=== PATIENT | male | born 1960 | race Caucasian/White ===

== ENCOUNTER → 2023-08-26 08:12 | Outpatient (CLI) | payer OTHER, SELFPAY ==
--- NOTE | 2023-08-26 08:14 | DI.RAD.S_ITS ---
PROCEDURE: XR CHEST 2V INDICATIONS: dypsnea, chest congestion TECHNIQUE: 2 views of the chest were acquired. COMPARISON: None. FINDINGS: Surgical changes and devices: None. Lungs and pleura: Lungs are clear. No pleural effusions or pneumothorax. Mediastinum: Mediastinal contours are normal. Heart size is normal. Bones and chest wall: No suspicious bony abnormalities. Soft tissues appear unremarkable. IMPRESSION: No acute cardiopulmonary process. Dictated by: Edison Fuller M.D. on 08/26/2023 at 8:35 Approved by: Edison Fuller M.D. on 08/26/2023 at 8:36
== END ==
PROVIDERS: Referring Provider Physician Assistant Surgical; Visit Provider Physician Assistant Surgical
DX: R09.89 Other specified symptoms and signs involving the circulatory and respiratory systems (principal)
CPT/HCPCS: 71046

== ENCOUNTER 2023-09-03 16:31 | Emergency (ER) | payer OTHER, SELFPAY ==
[2023-09-03] VITALS (65 sets, daily range): BP systolic 129–258; BP diastolic 76–119; PULSE 77–104; RESP 16–38; O2SAT 95–99; BMI 27.4
--- NOTE | 2023-09-03 16:49 | DI.RAD.S_ITS ---
PROCEDURE: XR CHEST 1V INDICATIONS: Possible stroke TECHNIQUE: One view of the chest was acquired. COMPARISON: [facility], CR, XR CHEST 2V, 08/26/2023, 8:17. FINDINGS: Surgical changes and devices: None. Lungs and pleura: Lungs are clear. No pleural effusions or pneumothorax. Mediastinum: Mediastinal contours appear normal. Heart size is normal. Bones and chest wall: No suspicious bony lesions. Overlying soft tissues appear unremarkable. IMPRESSION: No acute cardiopulmonary abnormalities or focal airspace disease. Dictated by: Jamaal Oreilly M.D. on 09/03/2023 at 17:14 Approved by: Jamaal Oreilly M.D. on 09/03/2023 at 17:14
--- NOTE | 2023-09-03 16:50 | DI.CT.S_ITS ---
PROCEDURE: CT ANGIO HEAD AND NECK INDICATIONS: left facial weakness sudden onset TECHNIQUE: After the administration of intravenous contrast, 1 mm thick sections acquired from the aortic arch through the [place] of [place]. 3-dimensional iqoiahk-hwuqtkrgw-vwpswvdjgb (MIP) and/or volume rendering reformats were acquired of the central intracranial vasculature and neck separately. For radiation dose reduction, the following was used: automated exposure control, adjustment of mA and/or kV according to patient size. COMPARISON: [facility], CT, CT STROKE, 09/03/2023, 17:02. FINDINGS: Image quality: Diagnostic. BRAIN: CSF spaces: Ventricles are normal in size and shape. Basal cisterns are patent. No extra-axial fluid collections. Brain: No midline shift. No intracranial masses. No suspicious enhancement. Rosa-white matter interface appears intact. Skull and face: Calvarium and facial bones appear intact, without suspicious lesions. Orbits appear normal. Sinuses: Sinuses and mastoids are clear. HEAD CT ANGIOGRAPHY: Anterior circulation: Intracranial atherosclerotic calcifications of the internal carotid arteries.. Intracranial internal carotid arteries appear patent without high-grade stenosis. There is flow/opacification within the paired anterior cerebral arteries. There is opacification within the middle cerebral arteries. The anterior communicating artery is seen. No aneurysms are seen. No occlusion. Posterior circulation: Visualized portions of the vertebral arteries are patent and join to form a normal appearing basilar artery. No evidence for high-grade stenosis. No occlusions. There is opacification of the posterior cerebral arteries. No aneurysms are seen. NECK CT ANGIOGRAPHY: Carotid system: The great vessels demonstrate a conventional anatomy as they arise from the aortic arch. The origins of the common carotid arteries appear patent. The common carotid arteries appear patent throughout their visualized courses without high grade stenosis. The bifurcation regions are both patent without high grade stenosis. The internal carotid arteries demonstrate normal calibers and courses. Posterior circulation: The origins of the vertebral arteries both appear patent without hemodynamically significant stenosis. The more superior extracranial portions of both vertebral arteries also demonstrate normal courses and calibers. They join to form a normal appearing basilar artery. Soft tissues: Visualized neck soft tissues demonstrate no suspicious abnormalities. Bones: No suspicious bony lesions. Visualized cervical spine appears normally aligned. No acute compression fractures of the vertebral bodies. Multilevel cervical spondylosis most severe at C5-6 where there is a prominent posterior endplate osteophyte. This results in moderate spinal canal stenosis. IMPRESSION: Negative CT angiogram of the intracranial arterial and neck arterial vasculature without high-grade stenosis. If there is persistent or high clinical suspicion for acute cerebrovascular ischemia/stroke, more sensitive evaluation with brain MRI can be considered. Any quantitative measurements of stenosis were performed using NASCET criteria. Dictated by: Jamaal Oreilly M.D. on 09/03/2023 at 17:16 Approved by: Jamaal Oreilly M.D. on 09/03/2023 at 17:21
--- NOTE | 2023-09-03 16:52 | ED_ITS ---
HPI - Neuro Symptoms/Deficit General Chief Complaint: Neuro Symptoms/Deficit Stated Complaint: facial droop. thinks stroke Time Seen by Provider: 09/03/23 16:46 History of Present Illness HPI Narrative: 63 year old gentleman with probable hypertension and hyperlipidemia that currently are not medicated,recently treated for a left otitis with cefdinir and has been having left ear pain and ear fullness with complains of decreased hearing over the last week. Was seen at urgent care this morning with concerns of the left ear was not improving. Was at home with his family, there were multiple family members in the kitchen andat 4:15 he turned around had a significant left facial droop. He was brought immediately to the emergency department for further evaluation. He reports no chest pain, palpitations, dyspnea, orthopnea, abdominal pain, nausea, vomiting, diarrhea. On Anticoagulants: No Related Data Home Medications Medication Instructions Recorded Confirmed amoxicillin 875 mg-potassium 1 tab PO BID 09/03/23 09/03/23 clavulanate 125 mg tablet Previous Rx's Medication Instructions Recorded cefdinir 300 mg capsule 300 mg PO BID 7 days #14 caps 09/03/23 Allergies Allergy/AdvReac Type Severity Reaction Status Date / Time No Known Drug Allergies Allergy Verified 09/03/23 07:30 Review of Systems Review of Systems Narrative: Pertinent positive and negative findings as per HPI Hematologic/Lymphatic On Anticoagulants: No Patient History Social History Smoking Status: Never smoker Smoking Status: Never smoker Exam Initial Vital Signs Initial Vital Signs: Vital Signs Pulse Rate 79 09/03/23 16:48 Respiratory Rate 16 09/03/23 16:48 Blood Pressure 258/119 H 09/03/23 16:48 Pulse Oximetry 97 09/03/23 16:48 Oxygen Delivery Method Room Air 09/03/23 16:48 General: Healthy appearing, Able to give a complete and coherent history. Well-nourished well-developed HEENT: Moist mucous membranes, normal sclera with reactive pupils, left-sided facial droop Neck: No cervical adenopathy Respiratory: Lungs are clear to auscultation, no wheezing no rales no rhonchi. Full and symmetrical air movement Cardiac: Regular rate and rhythm no murmurs no bruits Abdomen: Soft, nontender, good bowel tones, no flank pain Skin: Warm and dry, no rashes Neurologic: Left facial droop with slight decreased sensation over the left side of the face, decreased sensation in the left upper extremity left low lower extremity with maintained motor tone. Fluency and visual [place] are appropriate Extremities: No trauma, well perfused Psych: Cooperative, appropriate insight and affect NIH Stroke Scale/Score on 09/03/2023 RESULT SUMMARY: 4 points NIH Stroke Scale INPUTS: 1A: Level of consciousness ?> 0 = Alert; keenly responsive 1B: Ask month and age ?> 0 = Both questions right 1C: 'Blink eyes' & 'squeeze hands' ?> 0 = Performs both tasks 2: Horizontal extraocular movements ?> 0 = Normal 3: Visual [place] ?> 0 = No visual loss 4: Facial palsy ?> 3 = Unilateral complete paralysis (upper/lower face) 5A: Left arm motor drift ?> 0 = No drift for 10 seconds 5B: Right arm motor drift ?> 0 = No drift for 10 seconds 6A: Left leg motor drift ?> 0 = No drift for 5 seconds 6B: Right leg motor drift ?> 0 = No drift for 5 seconds 7: Limb Ataxia ?> 0 = No ataxia 8: Sensation ?> 1 = Mild-moderate loss: less sharp/more dull 9: Language/aphasia ?> 0 = Normal; no aphasia 10: Dysarthria ?> 0 = Normal 11: Extinction/inattention ?> 0 = No abnormality Course Orders Ordered: Discontinued Medications Nicardipine HCl 25 mg/ Sodium (Chloride) 250 mls @ 50 mls/hr IV TITRATE TUAN; Protocol Last Titration: 09/03/23 21:50 Dose: Infused Documented By: Titration: 09/03/23 19:50 Dose: 0 mg/hr, 0 mls/hr Documented By: Titration: 09/03/23 18:43 Dose: 2.5 mg/hr, 25 mls/hr Documented By: Titration: 09/03/23 18:03 Dose: 5 mg/hr, 50 mls/hr Documented By: Titration: 09/03/23 17:56 Dose: 10 mg/hr, 100 mls/hr Documented By: Admin: 09/03/23 17:03 Dose: 5 mg/hr, 50 mls/hr Documented By: NL Alteplase, Recombinant (Activase) 7.1 mg in 7.1 mls @ 426 mls/hr 0.09 mg/kg (7.1 mg) IV NOW ONE Stop: 09/03/23 17:20 Last Infusion: 09/03/23 17:51 Dose: Infused Documented By: Admin: 09/03/23 17:50 Dose: 426 mls/hr Documented By: JEANE Alteplase, Recombinant (Activase) 63.7 mg in 63.7 mls @ 63.7 mls/hr 0.81 mg/kg (63.7 mg) IV NOW ONE Stop: 09/03/23 18:18 Last Infusion: 09/03/23 18:41 Dose: Infused Documented By: Admin: 09/03/23 17:51 Dose: 63.7 mls/hr Documented By: JEANE Ondansetron HCl (Ondansetron 4 Mg/2 Ml Inj) 4 mg IV NOW PRN PRN Reason: Nausea And Vomiting Ondansetron HCl (Ondansetron 4 Mg Odt) 4 mg SL NOW PRN PRN Reason: Nausea And Vomiting Vital Signs Vital signs: Vital Signs - 8 hr 09/03/23 16:48 09/03/23 16:49 09/03/23 16:50 Pulse Rate 79 81 89 Respiratory Rate 16 21 29 H Blood Pressure 258/119 H Pulse Oximetry 97 98 99 Oxygen Delivery Method Room Air 09/03/23 17:03 09/03/23 17:04 09/03/23 17:04 Pulse Rate 79 80 Respiratory Rate 31 H 21 Blood Pressure 222/112 H Pulse Oximetry Oxygen Delivery Method 09/03/23 17:05 09/03/23 17:05 09/03/23 17:10 Pulse Rate 77 81 Respiratory Rate 20 24 Blood Pressure 206/103 H Pulse Oximetry Oxygen Delivery Method 09/03/23 17:10 09/03/23 17:15 09/03/23 17:15 Pulse Rate 82 Respiratory Rate 21 Blood Pressure 231/110 H 197/101 H Pulse Oximetry Oxygen Delivery Method 09/03/23 17:20 09/03/23 17:21 09/03/23 17:21 Pulse Rate 81 78 Respiratory Rate 20 21 Blood Pressure 161/92 H Pulse Oximetry Oxygen Delivery Method 09/03/23 17:24 09/03/23 17:25 09/03/23 17:25 Pulse Rate 80 78 Respiratory Rate 20 Blood Pressure 197/101 H 172/97 H Pulse Oximetry 97 Oxygen Delivery Method 09/03/23 17:30 09/03/23 17:31 09/03/23 17:31 Pulse Rate 96 H 88 Respiratory Rate 28 H 34 H Blood Pressure 182/96 H Pulse Oximetry 97 Oxygen Delivery Method 09/03/23 17:35 09/03/23 17:40 09/03/23 17:42 Pulse Rate 81 90 Respiratory Rate 22 21 Blood Pressure 171/99 H Pulse Oximetry 95 96 Oxygen Delivery Method 09/03/23 17:42 09/03/23 17:45 09/03/23 17:45 Pulse Rate 93 H 97 H Respiratory Rate 22 29 H Blood Pressure 172/100 H Pulse Oximetry 96 97 Oxygen Delivery Method 09/03/23 17:50 09/03/23 17:50 09/03/23 17:55 Pulse Rate 91 H Respiratory Rate 18 Blood Pressure 161/89 H 148/80 H Pulse Oximetry 95 Oxygen Delivery Method 09/03/23 17:55 09/03/23 18:00 09/03/23 18:00 Pulse Rate 91 H 91 H Respiratory Rate 25 H 21 Blood Pressure 143/76 H Pulse Oximetry 95 95 Oxygen Delivery Method 09/03/23 18:05 09/03/23 18:05 09/03/23 18:10 Pulse Rate 89 90 Respiratory Rate 20 20 Blood Pressure 133/81 Pulse Oximetry 96 95 Oxygen Delivery Method Room Air 09/03/23 18:10 09/03/23 18:15 09/03/23 18:15 Pulse Rate 91 H Respiratory Rate 20 Blood Pressure 140/83 144/82 H Pulse Oximetry 96 Oxygen Delivery Method 09/03/23 18:20 09/03/23 18:20 09/03/23 18:25 Pulse Rate 96 H 103 H Respiratory Rate 20 38 H Blood Pressure 147/85 H Pulse Oximetry 96 97 Oxygen Delivery Method Room Air 09/03/23 18:26 09/03/23 18:30 09/03/23 18:35 Pulse Rate 91 H 89 Respiratory Rate 18 18 Blood Pressure 142/78 H Pulse Oximetry 96 95 Oxygen Delivery Method 09/03/23 18:40 09/03/23 18:42 09/03/23 18:42 Pulse Rate 89 91 H Respiratory Rate 20 20 Blood Pressure 149/84 H Pulse Oximetry 97 97 Oxygen Delivery Method MDM - Neuro Symptoms/Deficit Lab Data 09/03/23 16:51 09/03/23 16:51 Labs: Lab Results 09/03/23 09/03/23 09/03/23 Range/Units 16:51 17:21 17:32 WBC 10.8 (4.5-11.0) X10^3/uL RBC 5.27 (4.5-5.9) X10^6/uL Hgb 16.0 (13.5-17.5) g/dL Hct 46.8 (41-53) % MCV 88.8 (80-100) fL MCH 30.3 (26-34) PG MCHC 34.1 (30-36) % RDW 14.6 (11.6-14.8) % Plt Count 378 (150-400) X10^3/uL Neut % (Auto) 58.1 (50-75) % Lymph % (Auto) 32.9 (25-40) % Nicollet % (Auto) 6.0 (3-14) % Eos % (Auto) 2.0 (2-4) % Baso % (Auto) 1.0 (0-2) % Neut # (Auto) 6300 (8121-6700) /uL Lymph # (Auto) 3600 (6126-5865) /uL Nicol[place] # (Auto) 600 (0-900) /uL Eos # (Auto) 200 (0-450) /uL Baso # (Auto) 100 (0-100) /uL PT 10.3 (9.4-12.5) SECONDS INR 0.9 (0.9-1.3) APTT 37 H (25.1-36.5) SECONDS Sodium 139 (137-145) mmol/L Potassium 3.7 (3.4-5.1) mmol/L Chloride 102 (98-107) mmol/L Carbon Dioxide 29 (22-32) mmol/L BUN 18 (9-20) mg/dL Creatinine 0.89 (0.66-1.25) mg/dL Estimated GFR > 60 (>60) mL/min BUN/Creatinine Ratio 20.2 (6-22) Glucose 131 H (80-110) mg/dL Calcium 9.3 (8.4-10.2) mg/dL Magnesium 2.2 (1.6-2.3) mg/dL Total Bilirubin 0.5 (0.2-1.3) mg/dL AST 39 (17-59) IU/L ALT 98 H (<50) IU/L Alkaline Phosphatase 90 (38-126) U/L Total Creatine Kinase 81 (55-170) U/L Troponin I < 0.012 (0.01-0.034) ng/mL Total Protein 8.4 H (6.3-8.2) g/dL Albumin 4.6 (3.5-5.0) g/dL Globulin 3.8 (1.7-4.1) g/dL Albumin/Globulin Ratio 1.2 (1.0-2.8) Urine Color Yellow Urine Appearance Clear Urine pH 6.5 (4.5-8.0) Ur Specific [place] 1.010 (1.000-1.035) Urine Protein Negative (Negative) Urine Glucose (UA) Negative (Negative) g/dL Urine Ketones Negative (NEGATIVE) Urine Occult Blood Negative (Negative) Urine Nitrate Negative (Negative) Urine Bilirubin Negative (NEGATIVE) Urine Urobilinogen 0.2 (0.2) E.U./dL Ur Leukocyte Esterase Negative (NEGATIVE) Urine RBC None seen (0-5/HPF) Urine WBC None seen (0-5/HPF) Ur Squamous Epith Cells None seen (0-5/HPF) Urine Bacteria None seen (None) Ur Culture Indicated? Cult not indicated Vol Urine Centrifuged 10ml (spun) U Opiates 300ng/mL cut Negative (Negative) Ur Oxycodone Screen Negative (Negative) Urine Methadone Screen Negative (Negative) Ur Barbiturates Screen Negative (Negative) U Tricyclic Antidepress Negative (Negative) Ur Phencyclidine Scrn Negative (Negative) Ur Amphetamines Screen Negative (Negative) U Methamphetamines Scrn Negative (Negative) Ur MDMA Scrn (Ecstasy) Negative (Negative) U Benzodiazepines Scrn Negative (Negative) Urine Cocaine Screen Negative (Negative) U Marijuana (THC) Screen Negative (Negative) Urine Specific [place] (Normal) Ethyl Alcohol < 10 ( - 10) mg/dL Ur Creatinine (Normal) SARS-CoV-2 (PCR) Negative (Negative) 09/03/23 Range/Units 17:32 WBC (4.5-11.0) X10^3/uL RBC (4.5-5.9) X10^6/uL Hgb (13.5-17.5) g/dL Hct (41-53) % MCV (80-100) fL MCH (26-34) PG MCHC (30-36) % RDW (11.6-14.8) % Plt Count (150-400) X10^3/uL Neut % (Auto) (50-75) % Lymph % (Auto) (25-40) % Nicollet % (Auto) (3-14) % Eos % (Auto) (2-4) % Baso % (Auto) (0-2) % Neut # (Auto) (6366-1230) /uL Lymph # (Auto) (5235-7802) /uL Nicollet # (Auto) (0-900) /uL Eos # (Auto) (0-450) /uL Baso # (Auto) (0-100) /uL PT (9.4-12.5) SECONDS INR (0.9-1.3) APTT (25.1-36.5) SECONDS Sodium (137-145) mmol/L Potassium (3.4-5.1) mmol/L Chloride (98-107) mmol/L Carbon Dioxide (22-32) mmol/L BUN (9-20) mg/dL Creatinine (0.66-1.25) mg/dL Estimated GFR (>60) mL/min BUN/Creatinine Ratio (6-22) Glucose (80-110) mg/dL Calcium (8.4-10.2) mg/dL Magnesium (1.6-2.3) mg/dL Total Bilirubin (0.2-1.3) mg/dL AST (17-59) IU/L ALT (<50) IU/L Alkaline Phosphatase (38-126) U/L Total Creatine Kinase (55-170) U/L Troponin I (0.01-0.034) ng/mL Total Protein (6.3-8.2) g/dL Albumin (3.5-5.0) g/dL Globulin (1.7-4.1) g/dL Albumin/Globulin Ratio (1.0-2.8) Urine Color Urine Appearance Urine pH Normal (4.5-8.0) Ur Specific E[place] (1.000-1.035) Urine Protein (Negative) Urine Glucose (UA) (Negative) g/dL Urine Ketones (NEGATIVE) Urine Occult Blood (Negative) Urine Nitrate (Negative) Urine Bilirubin (NEGATIVE) Urine Urobilinogen (0.2) E.U./dL Ur Leukocyte Esterase (NEGATIVE) Urine RBC (0-5/HPF) Urine WBC (0-5/HPF) Ur Squamous Epith Cells (0-5/HPF) Urine Bacteria (None) Ur Culture Indicated? Vol Urine Centrifuged U Opiates 300ng/mL cut (Negative) Ur Oxycodone Screen (Negative) Urine Methadone Screen (Negative) Ur Barbiturates Screen (Negative) U Tricyclic Antidepress (Negative) Ur Phencyclidine Scrn (Negative) Ur Amphetamines Screen (Negative) U Methamphetamines Scrn (Negative) Ur MDMA Scrn (Ecstasy) (Negative) U Benzodiazepines Scrn (Negative) Urine Cocaine Screen (Negative) U Marijuana (THC) Screen (Negative) Urine Specific [place] Normal (Normal) Ethyl Alcohol ( - 10) mg/dL Ur Creatinine Normal (Normal) SARS-CoV-2 (PCR) (Negative) Point of Care Testing Glucose POC 128 MDM Narrative Medical decision making narrative: last known well 415 discussed with pharmacy [address] with radiology 510 Consent for TPA from Family and patient 512. Reviewed NIH score of 4 vs risk of bleeding. The Facial droop and numbness are significant enough that patient and family do want to proceed BP 231/110. Nicardipine gtt started 515 OK to mix to TPA discussed with pharmacy 517 Labetolol 10mg 518 BP 197/101 Call to stroke 518, Dr Rajan Neurologist 5:29 172/97, ok to give TPA GOAL BP is 140-180 Systolic/100 538 BP 182/96, nicrdipine gtt increased to 10mg/hr 550 TPA pushed after discussion with Dr Rajan, neurologist and again confirming consent with family. BP 161/89 at time of push, nora started Discussion regarding transfer for post TPA care: [facility] is boarding over 90 patient is at this point and will accept the patient but asks that we see if more expedient transfer might be arranged. Will contact [facility] [place] 630pm NIH score =4, unchanged Laboratory evaluation: CBC is unremarkable Chemistries are reassuring Urine does not suggest urinary tract Toxicology screen including alcohol is entirely unremarkable Patient is COVID negative Discussion: 63-year-old gentleman with acute onset left facial droop and entire left-sided numbness. Significantly hypertensive. Please see timeline above for discussion decision-making and administration of tPA. Currently working on bed placement. Patient is turned over to Dr. Mcginnis at change of shift. Patient remains clinically stable with nicardipine drip now turned down to 5 mg an hour and tPA infusion finishing. No significant change to clinical examination. 640: [facility] No beds [facility] No Bed, call back if no luck Prov/[place] Maybe. Talked to neurologist, need to talk to ICU slotter operator helper to see if they are willing to accept and then will check on bed availability [place] call back after 730 [facility] care recommended calling elsewhere [facility] is currently at passing 7pm Discussed with NeuroIntensivist Dr [facility], Andrés Singh [place]. He will accept the patient. Transfer Center will call when bed is available expect transfer this evening. We will need ALS transport [facility] Stroke & Stroke Rehabilitation: Thrombolytic Therapy [x] The patient, who arrived at the hospital within 3.5 hours of time last known well, was diagnosed with subacute or acute ischemic stroke. An IV thrombolytic therapy was initiated within 4.5 hours of time last known well. [SATISFIES MIPS PERFORMANCE] Critical Care Time Critical Care Time Critical Care Time: Yes Total Critical Care Time: 36 Attestation: Critical care time is separate from other billable procedures. There is a high probability of a significant, sudden or life-threatening deterioration that requires my full and direct attention, intervention and personal management. This critical care time includes consultation with family and other consulting doctors, review of records, and interpretation of data from labs, EKGs and imaging as well as managements of acute stroke with administration of tPA as well as IV management of blood pressure Discharge Plan Departure Patient Disposition: [facility] Clinical Impression: Cerebrovascular accident Qualifiers: CVA mechanism: embolism Precerebral and cerebral artery: unspecified precerebral artery Qualified Code(s): I63.10 - Cerebral infarction due to embolism of unspecified precerebral artery Prescriptions: No Action cefdinir 300 mg capsule 300 mg PO BID 7 Days Qty: 14 0RF amoxicillin-pot clavulanate 875-125 mg tablet 1 tab PO BID Referrals: Miscellaneous,Doctor, [Primary Care Provider] -
[2023-09-03 16:58] LABS: Add Manual Diff / Slide Review NO; Basophils Absolute Auto 100 /uL (0-100); Eosinophils Absolute Auto 200 /uL (0-450); Hematocrit 46.8 % (41-53); Lymphocytes Absolute Auto 3600 /uL (1100-4500); Lymphocytes Percent Auto 32.9 % (25-40); Mean Corpuscular HGB Conc 34.1 % (30-36); Mean Corpuscular Hemoglobin 30.3 PG (26-34); Mean Corpuscular Volume 88.8 fL (80-100); Monocytes Absolute Auto 600 /uL (0-900); Neutrophils Absolute Auto 6300 /uL (1500-7000); Neutrophils Percent Auto 58.1 % (50-75); Platelet Count 378 X10^3/uL (150-400); Red Blood Cell Count 5.27 X10^6/uL (4.5-5.9); Red Cell Distribution Width 14.6 % (11.6-14.8); White Blood Cell Count 10.8 X10^3/uL (4.5-11.0)
--- NOTE | 2023-09-03 16:59 | DI.CT.S_ITS ---
PROCEDURE: CT STROKE INDICATIONS: Positive BE-FAST, Stroke symptoms TECHNIQUE: Noncontrast 4.5 mm thick angled axial sections acquired from the foramen magnum to the vertex, with coronal reformats. For radiation dose reduction, the following was used: automated exposure control, adjustment of mA and/or kV according to patient size. COMPARISON: [facility], CT, CT ANGIO HEAD AND NECK, 09/03/2023, 17:02. FINDINGS: Image quality: Diagnostic. CSF spaces: Basal cisterns are patent. No extra-axial fluid collections. The ventricles are symmetric in size and shape. Brain: No intracranial bleeds or masses. There is cerebral volume loss for age, with resultant ventricular and sulcal prominence. There are periventricular and deep white matter chronic small vessel ischemic changes. There is intracranial internal carotid artery atherosclerosis. Skull and face: Calvarium and visualized facial bones appear intact, without suspicious lesions. In this patient with this given history, scrutiny is given to the course of the left facial nerve, including within the left parotid gland. No suspicious masses can be seen to the limits of noncontrast CT. Sinuses: Visualized sinuses and mastoids are clear. IMPRESSION: No acute intracranial hemorrhage is seen. No acute intracranial pathology. If there is strong clinical suspicion for an acute stroke, please consider a brain MRI for further evaluation, as it is more sensitive (assuming that there is no contraindication to MRI). Note: Case discussed by telephone with Dr. Torres at 5:[address] [facility] time on September 03, 2023. This study fulfills neurological imaging criteria for inclusion or exclusion of acute stroke therapies based on available published neurological guidelines. Dictated by: Bishnu Crowley M.D. on 09/03/2023 at 16:08 Approved by: Bishnu Crowley M.D. on 09/03/2023 at 16:10
[2023-09-03] MEDS: NICARDIPINE 25 MG in SODIUM CHLORIDE 0.9% 240 ML 50 MG IV (17:03)
[2023-09-03 17:09] LABS: INR 0.9 (0.9-1.3); Prothrombin Time 10.3 SECONDS (9.4-12.5)
[2023-09-03 17:11] LABS: PTT Partial Thromboplastin Tim 37 SECONDS (25.1-36.5)
[2023-09-03 17:13] LABS: Alanine Aminotransferase 98 IU/L (<50); Albumin 4.6 g/dL (3.5-5.0); Albumin Globulin Ratio 1.2 (1.0-2.8); Alkaline Phosphatase 90 U/L (38-126); Aspartate Aminotransferase 39 IU/L (17-59); BUN Creatinine Ratio 20.2 (6-22); Bilirubin Total 0.5 mg/dL (0.2-1.3); Blood Urea Nitrogen 18 mg/dL (9-20); Calcium 9.3 mg/dL (8.4-10.2); Carbon Dioxide 29 mmol/L (22-32); Chloride 102 mmol/L (98-107); Creatine Kinase 81 U/L (55-170); Estimated Glomerular Filt Rate > 60 mL/min (>60); Globulin 3.8 g/dL (1.7-4.1); Glucose 131 mg/dL (80-110); HEMOLYSIS 22 (0-50); Magnesium 2.2 mg/dL (1.6-2.3); Potassium 3.7 mmol/L (3.4-5.1); Sodium 139 mmol/L (137-145); Total Protein 8.4 g/dL (6.3-8.2)
[2023-09-03 17:24] LABS: Troponin I < 0.012 ng/mL (0.01-0.034)
[2023-09-03] MEDS: LABETALOL 20 MG/4 ML SYRINGE IV (17:24)
[2023-09-03 17:35] LABS: Ethanol (ETOH) < 10 mg/dL
[2023-09-03 17:41] LABS: Appearance Urine UA CLEAR; Bilirubin Urine UA NEGATIVE (NEGATIVE); Color Urine UA YELLOW; Glucose Urine UA NEGATIVE (Negative); Ketones Urine UA NEGATIVE (NEGATIVE); Leukocyte Esterase Urine UA NEGATIVE (NEGATIVE); Nitrite Urine UA NEGATIVE (Negative); Occult Blood Urine UA NEGATIVE (Negative); Protein Urine UA NEGATIVE (Negative); UR Morphine/Opiate cutoff 300 Negative (Negative); Ur Creatinine Normal (Normal); Ur Specific Gravity Normal (Normal); Urine Amphetamines Negative (Negative); Urine Barbiturates Negative (Negative); Urine Benzodiazepines Negative (Negative); Urine Cocaine Negative (Negative); Urine MDMA Negative (Negative); Urine Methadone Negative (Negative); Urine Methamphetamines Negative (Negative); Urine Oxycodone Negative (Negative); Urine Phencyclidine Negative (Negative); Urine Tetrahydrocannabinol Negative (Negative); Urine Tricyclic Antidepressant Negative (Negative); Urine pH Normal (Normal); Urobilinogen Urine UA 0.2 E.U./dL (0.2); pH Urine UA 6.5 (4.5-8.0)
[2023-09-03 17:47] LABS: COVID19 -Nasal RAPID Negative (Negative)
[2023-09-03 17:49] LABS: Bacteria Urine None Seen; Culture Indicated Urine Cult Not Indicated; RBC Urine None Seen (0-5/HPF); Squamous Epithelial Cell Urine None Seen (0-5/HPF); Urine Volume 10mL (spun); WBC Urine None Seen (0-5/HPF)
[2023-09-03] MEDS: ALTEPLASE 426 MG IV (17:50)
[2023-09-03] MEDS: ALTEPLASE IV (17:51)
--- NOTE | 2023-09-03 18:32 | PC.NURSE ---
spoke to osvaldo at [facility] they have no ICU beds spoke to kevin at [facility] was told no beds keep looking else where spoke to refugio at [facility] he said they might have beds pushed images and faxed over facesheet spoke to Cookie at [facility] who said they have no ICU beds spoke to Maria C and was told to call after 1930 spoke to Mandy at [facility] they are currently boarding and was told to keep looking elsewhere. spoke to aideeen waste water plant operator who was transferring me to the power house control room operator; never spoke to the power house control room operator instead was told by the waste water plant operator that he spoke with her and they are at capacity
--- NOTE | 2023-09-03 21:06 | PC.NURSE ---
pt has improved feeling on left side of face. droop is less noticable from admit. pt states he is feeling a little better but feels like his left eye is not closing all the way when he is squeezing them tight.
== END 2023-09-03 21:49 | disposition short-term general hospital (02) ==
PROVIDERS: Emergency Provider Emergency Medicine
DX: I63.10 Cerebral infarction due to embolism of unspecified precerebral artery (principal); R29.704 NIHSS score 4; Z20.822 Contact with and (suspected) exposure to COVID-19
CPT/HCPCS: 36415; 70450; 70496; 70498; 71045; 80053; 80305; 80320; 81001; 82550; 82962; 83735; 84484; 85025; 85610; 85730; 87635; 93005; 96365; 96366; 96368; 96375; 99285; 99291; 99292; J2997